=== PATIENT | male | born 1960 | race Caucasian/White ===

== ENCOUNTER 2016-09-05 03:42 | Outpatient (CLI) | payer OTHER ==
[2016-09-05 04:03] LABS: Bilirubin Negative (Negative); Blood, Urine Negative (Negative); Glucose, Urine (Dipstick) Negative (Negative); Ketone, Urine Negative (Negative); Nitrite Negative (Negative); Protein, Urine (Dipstick) Negative (Neg-Trace)
[2016-09-05 04:06] LABS: Hematocrit 42.3 % (42.0-52.0); Red Blood Cell (RBC) Count 4.88 mill/uL (4.70-6.10); White Blood Cell (WBC) Count 6.6 thou/uL (4.8-10.8)
[2016-09-05 04:07] LABS: #Basophils 0.1 thou/uL (0.0-0.2); #Eosinphils 0.1 thou/uL (0.0-0.7); #Lymphocytes 2.2 thou/uL (1.20-3.40); #Monocytes 0.7 thou/uL (0.11-0.59); #Neutrophils 3.5 thou/uL (1.40-6.50); %Basophils 1.4 % (0.0-1.0); %Lymphocytes 33.4 % (21.0-51.0); Mean Platelet Volume 7.9 fL (7.4-10.4)
[2016-09-05 04:34] LABS: Carbon Dioxide 25 mmol/L (22-29); Chloride 104 mmol/L (98-107)
[2016-09-05 04:35] LABS: Anion Gap 13 mmol/L (10-20)
[2016-09-05 04:36] LABS: ALT (SGPT) 27 U/L (0-55); AST (SGOT) 27 U/L (5-34); Alkaline Phosphatase 46 U/L (40-150); BUN (Urea Nitrogen) 14 mg/dL (8.4-25.7); Bilirubin, Total 1.6 mg/dL (0.2-1.2); Calcium 8.9 mg/dL (7.8-10.44); Estimated GFR-MDRD 70; Globulin 3.2 g/dL (2.4-3.5); Protein, Total 7.3 g/dL (6.0-8.3)
[2016-09-05 04:38] LABS: LDL Cholesterol, Calculated 124 mg/dL
[2016-09-05 04:41] LABS: Calc. Creatinine Clearance 70 mL/min (70-130)
== END 2016-09-05 03:43 ==
LOC: NAVSJIPCSP 03:42
PROVIDERS: ATTEND Internal Medicine
DX: Z12.5 Encounter for screening for malignant neoplasm of prostate (principal); E78.5 Hyperlipidemia, unspecified; G43.909 Migraine, unspecified, not intractable, without status migrainosus; I11.9 Hypertensive heart disease without heart failure
CPT/HCPCS: 36415; 80053; 80061; 81003; 85025; G0103

== ENCOUNTER 2017-10-08 14:48 | Outpatient (CLI) | payer OTHER ==
--- NOTE | 2017-10-08 16:15 | RAD ---
TWO VIEWS CHEST: History: Cough and congestion x a few weeks. Comparison: None. FINDINGS: Slight elongation of the aorta. Normal cardiac silhouette. The pulmonary vessels and hilum are normal . Costophrenic angles are clear. No mass. No consolidation. No pneumothorax or osseous abnormalities. IMPRESSION: No acute cardiopulmonary process. POS: [facility]
== END 2017-10-08 14:49 | disposition home or self-care (01) ==
LOC: NAV RAD 14:48
PROVIDERS: ATTEND Internal Medicine
DX: J06.9 Acute upper respiratory infection, unspecified (principal)
CPT/HCPCS: 71046

== ENCOUNTER 2021-02-22 14:46 | Outpatient (CLI) | payer OTHER | END 2021-02-22 14:47 | disposition home or self-care (01) | LOC: NAV RAD 14:46 | PROVIDERS: ATTEND Family Medicine | DX: M25.562 Pain in left knee (principal); M17.12 Unilateral primary osteoarthritis, left knee ==